=== PATIENT | female | born 2000 | race American Indian/Alaskan Native ===

== ENCOUNTER 2019-07-21 20:12 | Emergency (ER) | payer SELFPAY ==
--- NOTE | 2019-07-22 00:27 | XRay Report ---
RIGHT ANKLE 3 VIEWS INDICATION / CLINICAL INFORMATION: Fell down steps last night and twisted right ankle. Right ankle pain and swelling. COMPARISON: None available. FINDINGS: BONES / JOINT(S): No acute fracture or subluxation. No significant arthritis. SOFT TISSUES: There is mild soft tissue swelling overlying the lateral malleolus. ADDITIONAL FINDINGS: None. IMPRESSION: Mild soft tissue swelling overlying the lateral malleolus without acute osseous abnormali ty. Signer Name: Jeremy Meredith MD Signed: 07/22/2019 12:23 AM Workstation Name: [id number]
[2019-07-22] MEDS ORDERED: IBUPROFEN 600 MG TAB PO ONE (02:10)
[2019-07-22] MEDS ORDERED: ACETAMINOPHEN 500 MG TAB PO ONE (02:10)
[2019-07-22] MEDS ORDERED: ONDANSETRON 4 MG ODT TAB PO ONE (03:05)
--- NOTE | 2019-07-22 03:08 | Emergency Department Report ---
ED Lower Extremity HPI - General Chief Complaint: Extremity Injury, Lower Stated Complaint: SWOLLEN,ANKLE Source: patient Mode of arrival: Ambulatory Limitations: No Limitations - History of Present Illness Initial Comments: Patient is a 18-year-old -Thai female with no past medical history presents to the ED record and acute onset positions of the right ankle and foot pain after she slipped down the stairs and fell down having twisted her right ankle about 12 hours ago when coming down the stairs. Patient denies head or neck injuries, dizziness, syncope, chest pain, shortness of breath, back pain, hip pain, numbness and tingling or weakness of lower extremities bilaterally or nausea and vomiting. The patient states that the patient has worsened in the last 8 hours. Patient stated that she is unable to bear weight on the right leg because of severe right ankle pain. MD Complaint: ankle injury (right ), other (right ankle swelling) -: Sudden, hour(s) (12) Injury: Ankle: Right (pain and swelling) Type of Injury: inversion, eversion Place: home Severity: severe Severity scale (0 -10): 7 Improves With: nothing Worsens With: weight bearing, movement, palpation Context: fall, other (slipped and fell down stairs) Associated Symptoms: snap/pop sensation, swelling, able to partially bear weight. denies: numbness, tingling, unable to bear weight - Related Data Previous Rx's Medication Instructions Recorded Last Taken Type Ibuprofen [Motrin] 600 mg PO Q8H PRN #24 tablet 07/22/19 Unknown Rx tiZANidine [Zanaflex 4mg TAB] 4 mg PO Q8H PRN #15 tablet 07/22/19 Unknown Rx traMADoL [Ultram] 50 mg PO Q6HR PRN #12 tablet 07/22/19 Unknown Rx Allergies Allergy/AdvReac Type Severity Reaction Status Date / Time strawberry Allergy Swelling Verified 07/21/19 20:54 ED Review of Systems ROS: Stated complaint: SWOLLEN,ANKLE Other details as noted in HPI Constitutional: denies: chills, fever Eyes: denies: eye pain, eye discharge, vision change ENT: denies: ear pain, throat pain Respiratory: denies: cough, shortness of breath, wheezing Cardiovascular: denies: chest pain, palpitations Endocrine: no symptoms reported Gastrointestinal: denies: abdominal pain, nausea, diarrhea Genitourinary: denies: urgency, dysuria, discharge Musculoskeletal: joint swelling (right ankle swelling and pain), arthralgia (right ankle swelling and pain). denies: back pain Skin: denies: rash, lesions Neurological: denies: headache, weakness, paresthesias Psychiatric: denies: anxiety, depression Hematological/Lymphatic: denies: easy bleeding, easy bruising ED Past Medical Hx - Past Medical History Previous Medical History?: No - Surgical History Past Surgical History?: No - Social History Smoking Status: Never Smoker - Medications Home Medications: Home Medications Medication Instructions Recorded Confirmed Last Taken Type Ibuprofen [Motrin] 600 mg PO Q8H PRN #24 tablet 07/22/19 Unknown Rx tiZANidine [Zanaflex 4mg TAB] 4 mg PO Q8H PRN #15 tablet 07/22/19 Unknown Rx traMADoL [Ultram] 50 mg PO Q6HR PRN #12 tablet 07/22/19 Unknown Rx ED Physical Exam - General Limitations: No Limitations General appearance: alert, in no apparent distress - Head Head exam: Present: atraumatic, normocephalic, normal inspection - Eye Eye exam: Present: normal appearance, PERRL, EOMI Pupils: Present: normal accommodation - ENT ENT exam: Present: normal exam, normal orophraynx, mucous membranes moist, TM's normal bilaterally, normal external ear exam - Neck Neck exam: Present: normal inspection, full ROM - Respiratory Respiratory exam: Present: normal lung sounds bilaterally. Absent: respiratory distress, wheezes, rhonchi, chest wall tenderness, decreased breath sounds - Cardiovascular Cardiovascular Exam: Present: regular rate, normal rhythm, normal heart sounds. Absent: systolic murmur, diastolic murmur, rubs, gallop - GI/Abdominal GI/Abdominal exam: Present: soft, normal bowel sounds. Absent: tenderness - Extremities Exam Extremities exam: Present: normal inspection, tenderness (palpable right ankle s welling with tenderness and limited range of motion due to pain), normal capillary refill, joint swelling (right ankle swelling). Absent: full ROM (Limited range of motion due to pain) - Back Exam Back exam: Present: normal inspection, full ROM. Absent: muscle spasm, paraspinal tenderness, vertebral tenderness - Neurological Exam Neurological exam: Present: alert, oriented X3, CN II-XII intact, normal gait, reflexes normal - Psychiatric Psychiatric exam: Present: normal affect, normal mood - Skin Skin exam: Present: warm, dry, intact, normal color. Absent: rash ED Course Vital Signs 07/21/19 07/22/19 23:15 03:34 Temperature 98.6 F Pulse Rate 73 62 Respiratory 18 18 Rate Blood Pressure 116/46 Blood Pressure 111/64 [Right] O2 Sat by Pulse 100 100 Oximetry ED Lower Extremity MDM - Radiology Data Radiology results: report reviewed, image reviewed Findings [facility] [address] [place] [address] XRay Report Signed Patient: MARRY FAJARDO MR#: [id number] : 2000 Acct:[id number] Age/Sex: 18 / F ADM Date: 07/21/19 Loc: ED Attending Dr: Ordering Physician: MITRA SANCHEZ MD Date of Service: 07/21/19 Procedure(s): XR ankle 3+V RT Accession Number(s): [id number] cc: ED MD DANIEL Fluoro Time In Minutes: RIGHT ANKLE 3 VIEWS INDICATION / CLINICAL INFORMATION: Fell down steps last night and twisted right ankle. Right ankle pain and swelling. COMPARISON: None available. FINDINGS: BONES / JOINT(S): No acute fracture or subluxation. No significant arthritis. SOFT TISSUES: There is mild soft tissue swelling overlying the lateral malleolus. ADDITIONAL FINDINGS: None. IMPRESSION: Mild soft tissue swelling overlying the lateral malleolus without acute osseous abnormality. Signer Name: Jeremy Meredith MD Signed: 07/22/2019 12:23 AM Workstation Name: [id number] Transcribed By: RT Dictated By: Jeremy Meredith MD Electronically Authenticated By: Jeremy Meredith MD Signed Date/Time: 07/22/19 0023 DD/ 0018 TD/TT: - Medical Decision Making This is a 18-year-old female who presented to the ED with that ankle pain and swelling after she slipped and twisted her right ankle and coming down the stairs over 12 hours ago. In the ED, patient is alert and oriented 3 and is not in any acute distress but appears to be in pain. Right ankle x-ray shows no acute fractures or subluxations but mild soft tissue swelling. Patient was treated for pain in the ED and that ankle splint or Anirudh wrap and patient fitted with crutches to enable ambulate. On reevaluation, patient's pain is well- controlled with medications and patient will discharged home on pain medications and muscle relaxants and was advised to return to the ED immediately if symptoms get worse. - Differential Diagnosis Ankle fracture; foot fracture; foot contusion; muscle strain; ankle sprain Critical care attestation.: If time is entered above; I have spent that time in minutes in the direct care of this critically ill patient, excluding procedure time. ED Disposition Clinical Impression: Severe sprain of right ankle Qualifiers: Encounter type: initial encounter Qualified Code(s): S93.401A - Sprain of unspecified ligament of right ankle, initial encounter Muscle strain of right ankle Qualifiers: Encounter type: initial encounter Qualified Code(s): S96.911A - Strain of unspecified muscle and tendon at ankle and foot level, right foot, initial encounter Disposition: TO HOME OR SELFCARE Is pt being admited?: No Does the pt Need Aspirin: No Condition: Stable Instructions: Ankle Sprain (ED), Muscle Strain (ED) Additional Instructions: Take medication with food, drink plenty of fluids and follow-up with your primary care physician in 7-10 days for reevaluation. Return to the ED immediately if symptoms get worse. Prescriptions: Ibuprofen [Motrin] 600 mg PO Q8H PRN #24 tablet PRN Reason: Pain traMADoL [Ultram] 50 mg PO Q6HR PRN #12 tablet PRN Reason: Pain tiZANidine [Zanaflex 4mg TAB] 4 mg PO Q8H PRN #15 tablet PRN Reason: Muscle Spasm Referrals: [facility] [Outside] - 3-5 Days Forms: Work/School Release Form(ED) Time of Disposition: 03:06 Print Language: MACEDONIAN
[2019-07-22 03:35] VITALS: BP 111/64
== END 2019-07-22 03:36 | disposition home or self-care (01) ==
LOC: ED 20:12
DX: S96.911A Strain of unspecified muscle and tendon at ankle and foot level, right foot, initial encounter (principal); S93.401A Sprain of unspecified ligament of right ankle, initial encounter; X50.1XXA Overexertion from prolonged static or awkward postures, initial encounter; Y93.89 Activity, other specified; Y92.89 Other specified places as the place of occurrence of the external cause; Y99.8 Other external cause status
CPT/HCPCS: Q0162